=== PATIENT | female | born 1955 | race Hispanic/Latino ===

== ENCOUNTER 2018-03-31 16:24 | Emergency (ER) | payer BC ==
[~2018-03-31] VITALS: Ht 170.2 cm; Wt 81.6 kg
[~2018-03-31 16:24] MED LIST: NAPROXEN250 MG PO; TYLENOL WITH C1 EACH PO
[2018-03-31] MEDS ORDERED: MORPHINE SULFATE 2 MG/ML SYR IV STA (16:46)
[2018-03-31] MEDS ORDERED: SODIUM CHLORIDE 0.9% 1000ML 1,000 ML IV STA (16:46)
[2018-03-31] MEDS ORDERED: ONDANSETRON HCL INJ 2 MG/ML VIAL IV STA (16:46)
[2018-03-31 17:53] VITALS: BP 110/60
== END 2018-03-31 17:55 | disposition home or self-care (01) ==
LOC: FSED 16:24
DX: R10.84 Generalized abdominal pain (principal); R11.2 Nausea with vomiting, unspecified; R19.7 Diarrhea, unspecified; E86.0 Dehydration
CPT/HCPCS: 80053; 81003; 85025; 99283; J2270; J2405; J7030

== ENCOUNTER → 2018-05-23 | Outpatient (CLI) | payer BC ==
--- NOTE | 2018-05-24 07:46 | Diagnostic Imaging Report ---
TECHNIQUE: Magnetic resonance imaging of the LEFT KNEE was performed WITHOUT injected contrast. HISTORY: Left knee pain COMPARISON: None available. FINDINGS: LIGAMENTS AND TENDONS: ACL: Intact PCL: Intact Collateral ligaments: Intact Iliotibial band: Unremarkable Popliteal tendon: Intact Extensor mechanism: Intact JOINT: Menisci: Medial: Peripheral horizontal tear of the body with small fluid fragment to the meniscotibial recess coronal image 12. Lateral: Intact Articular Cartilage: Medial Compartment: Diffuse partial thickness cartilage loss Lateral Compartment: Diffuse partial thickness cartilage loss Patellofemoral Compartment: Diffuse partial thickness cartilage loss Joint Fluid: Small effusion with Wu's cyst. BONE: No focal or infiltrative bone marrow replacing abnormality. No acute fracture. SOFT TISSUES: Otherwise, unremarkable. IMPRESSION: Medial meniscus peripheral horizontal tear with small flipped fragment into the meniscotibial recess area Tricompartmental partial thickness cartilage loss predominantly medial compartment. Joint effusion and Wu's cyst. Signed by: Dr. Giuseppe De La Rosa M.D. on 05/24/2018 7:43 AM
== END ==
LOC: MRI 16:15
PROVIDERS: ATTEND Specialist
DX: M25.562 Pain in left knee (principal)

== ENCOUNTER → 2018-06-11 | Day surgery (SDC) | payer BC ==
[~2018-06-11] MED LIST changes: +ACETAMINOPHEN 1000 MG/100 ML 100 ML IV ONE; +ACETAMINOPHEN 1000 MG/100 ML IV ONE; +ADVIL200 MG PO; +BUPIVACAINE 0.5%/EPI 30 ML SDV INJ ONE; +CLINDAMYCIN PHOS 900MG/ D5W 50 50 ML IV ONE; +DEXAMETHASONE SOD PHOS INJ 4 MG/ML VIAL ONE; +FENTANYL CITRATE/PF 100MCG/2 ML INJ ONE; +FOSAMAX70 MG PO; +GLUCOSAMINE CH1 EAC2 PO; +KETOROLAC TROMETHAMINE 30 MG/ML VIAL ONE; +LIDOCAINE HCL 2% LOCAL INJ 5 ML SDV VIAL INJ ONE; +MIDAZOLAM HCL 2 MG/2 ML VIAL ONE; +MORPHINE SULFATE 2 MG/ML SYR ONE; +NORVASC5 MG PO; +ONDANSETRON HCL INJ 2 MG/ML VIAL ONE; +PROPOFOL IV EMULSION 10 MG/ML 20 ML VIAL ONE; +VIT D PO; +[UNRECOGNIZED DRUG - OTHER] PO
--- NOTE | 2018-06-13 19:12 | Operative Report ---
DATE OF PROCEDURE: June 11, 2018 PREOPERATIVE DIAGNOSES 1. Left knee medial meniscus tear. 2. Left knee degenerative joint disease of the knee. POSTOPERATIVE DIAGNOSES 1. Left knee medial meniscus tear. 2. Left knee medial shelf plica. 3. Left knee degenerative joint disease of the knee. OPERATIONS/PROCEDURES PERFORMED 1. The patient underwent a left knee examination under anesthesia. 2. Left knee arthroscopy. 3. Left knee partial medial meniscectomy. 4. Left knee chondroplasty of the patella, the trochlea, the medial femoral condyle, the medial tibial plateau, the lateral femoral condyle, and lateral tibial plateau, as well as a resection of medial shelf plica. BRA[employer] FREIGHT: None. ANESTHESIA: General endotracheal intubation anesthesia. IV FLUIDS: Per the anesthesia record. BRIEF DESCRIPTION OF THE PATIENT'S OPERATIVE PROCEDURE: Ms. Potter was taken to the operating room and placed in the supine position on the operating table. Following induction of general anesthesia, as well as endotracheal intubation, the patient's left lower extremity was examined under anesthesia. She was found to have a mild effusion within the knee joint, but otherwise ligamentously stable knee. The patient's lower extremity was prepped and draped in the standard surgical fashion. A 2-portal technique was used to provide this patient arthroscopic evaluation of the knee joint. Examination of the suprapatellar pouch, medial and lateral gutters found no evidence of loose bodies. There was, however, evidence of chondromalacia of the patellar and trochlear surfaces. Scope was advanced in the medial compartment. Examination of the medial compartment demonstrated a torn medial meniscus. There was also chondromalacia of the articulating surfaces. A combination of biting forceps and a motorized shaver was used to resect the torn portion of the meniscus. Chondroplasties of the medial femoral condyle and medial tibial plateau were performed at this time. Scope was advanced into the intercondylar notch. The anterior cruciate ligament was identified and found to be intact. Scope was advanced in the lateral compartment, and chondromalacia of the articulating surfaces were encountered. Chondroplasties of the lateral femoral condyle and lateral tibial plateau were performed at this time. Scope was then placed in the suprapatellar pouch, and chondroplasty of the patella and trochlea were performed. There was also a large medial shelf plica interdigitating between the patella and trochlea, and this was resected at this time. The knee was deflated of its sterile normal saline. The portal sites were closed using 4-0 nylon suture. The portal sites as well as the knee itself were injected with 0.5% Marcaine with epinephrine. Sterile dressings were applied. The patient was awakened and taken to the postanesthesia care unit in stable condition. Job#: [id number] [id number]
== END | disposition home or self-care (01) ==
LOC: OR 09:14
PROVIDERS: ATTEND Specialist
DX: S83.242A Other tear of medial meniscus, current injury, left knee, initial encounter (principal); S76.312D Strain of muscle, fascia and tendon of the posterior muscle group at thigh level, left thigh, subsequent encounter; M17.12 Unilateral primary osteoarthritis, left knee; M71.22 Synovial cyst of popliteal space [Baker], left knee; S83.222D Peripheral tear of medial meniscus, current injury, left knee, subsequent encounter; E78.00 Pure hypercholesterolemia, unspecified; M67.52 Plica syndrome, left knee
CPT/HCPCS: 29881; 93005; J1100; J1885; J2001; J2250; J2270; J2405

== ENCOUNTER 2018-07-24 15:00 | Outpatient (RCR) | payer BC ==
[~2018-07-24 15:00] MED LIST changes: -ACETAMINOPHEN 1000 MG/100 ML 100 ML IV ONE; -ACETAMINOPHEN 1000 MG/100 ML IV ONE; -BUPIVACAINE 0.5%/EPI 30 ML SDV INJ ONE; -CLINDAMYCIN PHOS 900MG/ D5W 50 50 ML IV ONE; -DEXAMETHASONE SOD PHOS INJ 4 MG/ML VIAL ONE; -FENTANYL CITRATE/PF 100MCG/2 ML INJ ONE; -KETOROLAC TROMETHAMINE 30 MG/ML VIAL ONE; -LIDOCAINE HCL 2% LOCAL INJ 5 ML SDV VIAL INJ ONE; -MIDAZOLAM HCL 2 MG/2 ML VIAL ONE; -MORPHINE SULFATE 2 MG/ML SYR ONE; -ONDANSETRON HCL INJ 2 MG/ML VIAL ONE; -PROPOFOL IV EMULSION 10 MG/ML 20 ML VIAL ONE
== END 2018-07-25 ==
LOC: PT 15:00
PROVIDERS: ATTEND Specialist
DX: M25.562 Pain in left knee (principal); M25.662 Stiffness of left knee, not elsewhere classified; R26.2 Difficulty in walking, not elsewhere classified; M62.81 Muscle weakness (generalized)

== ENCOUNTER 2018-08-14 15:00 | Outpatient (RCR) | payer BC | END 2018-08-24 | LOC: PT 15:00 | PROVIDERS: ATTEND Specialist | DX: M25.562 Pain in left knee (principal); M25.662 Stiffness of left knee, not elsewhere classified; M62.81 Muscle weakness (generalized); R26.2 Difficulty in walking, not elsewhere classified ==